=== PATIENT | male | born 1950 | race Caucasian/White ===

== ENCOUNTER → 2017-08-06 | Outpatient (CLI) | payer MEDICARE, OTHER | LOC: COL.VAS 11:58 | DX: M66.0 Rupture of popliteal cyst (principal) ==

== ENCOUNTER → 2021-05-15 | Outpatient (CLI) | payer MEDICARE, OTHER | LOC: COL.RAD 08:53 | DX: Z13.6 Encounter for screening for cardiovascular disorders (principal) ==

== ENCOUNTER 2021-07-11 13:44 | Emergency (ER) | payer MEDICARE, OTHER ==
[~2021-07-11] VITALS: Ht 172.7 cm; Wt 100.0 kg
[2021-07-11 14:07] VITALS: TEMP 98
[2021-07-11 18:10] VITALS: BP 126/82; PULSE 60
== END 2021-07-11 18:10 | disposition home or self-care (01) ==
LOC: COL.ER 13:44
DX: S63.283A Dislocation of proximal interphalangeal joint of left middle finger, initial encounter (principal); S00.01XA Abrasion of scalp, initial encounter; E11.9 Type 2 diabetes mellitus without complications; Z87.891 Personal history of nicotine dependence; Z23 Encounter for immunization; W11.XXXA Fall on and from ladder, initial encounter

== ENCOUNTER 2022-02-11 23:14 | Observation (INO) | payer MEDICARE, OTHER ==
[~2022-02-11] VITALS: Ht 172.7 cm; Wt 96.5 kg
[2022-02-11 23:58] LABS: BASO % 0.4 % (0.0-2.0); EOS % 0.4 % (0.0-4.0); GRAN # 9.2 K/mm3 (1.4-6.5); GRAN % 84.6 % (42.2-75.2); HEMOGLOBIN 16.3 g/dl (13.5-18.0); LYMPH % 9.2 % (20.0-51.0); MEAN CELL VOLUME 93 fl (80.0-100.0); MEAN CORPUSCULAR HEMOGLOBIN 31 pg (27-31); MEAN CORPUSCULAR HGB CONC 33 g/dl (33.0-37.0); MONO # 0.5 K/mm3 (0.1-0.6); MONO % 4.8 % (1.7-9.3); PLATELET COUNT 239 K/mm3 (130-400); RED BLOOD COUNT 5.27 M/mm3 (4.20-5.60); REDCELL DISTRIBUTION WIDTH-CV 13.2 % (11.5-14.5)
[2022-02-12 00:01] LABS: ALANINE AMINOTRANSFERASE 84 U/L (0-55); ALBUMIN 3.9 gm/dL (3.4-4.8); ALKALINE PHOSPHATASE 100 U/L (40-150); ANION GAP 13 mmol/L (7-16); AST,SGOT 108 U/L (5-34); BILIRUBIN,TOTAL 0.7 mg/dL (0.2-1.2); BLOOD UREA NITROGEN 19 mg/dL (8-26); C-REACTIVE PROTEIN 0.32 mg/dL (0.00-0.50); CALCIUM 10.1 mg/dL (8.4-10.2); CARBON DIOXIDE 22 mmol/L (23-31); CHLORIDE 104 mmol/L (98-107); CREATININE, serum 1.04 mg/dL (0.72-1.25); GLUCOSE 146 mg/dL (70-99); POTASSIUM 4.1 mmol/L (3.5-4.5); SODIUM 139 mmol/L (136-145); TOTAL PROTEIN 7.2 gm/dL (6.2-8.1)
[2022-02-12 00:13] LABS: COLLECTION METHOD CLEAN CATCH
[2022-02-12 00:20] LABS: MUCOUS Present (NOT PRESENT); SQUAMOUS EPITHELIAL None Seen /hpf (0-10); URINE BACTERIA None Seen /hpf (NONE SEEN)
[2022-02-12 00:22] LABS: URINE COLOR Yellow (YELLOW)
[2022-02-12 00:22] LABS: LIPASE 2570 U/L (8-78); TROPONIN-I < 0.010 ng/mL (0.00-0.033)
[2022-02-12 00:23] LABS: PH 5.5 (5.0-8.5); URINE APPEARANCE Clear (CLEAR/HAZY); URINE BLOOD TRACE-INTACT (NEGATIVE); URINE GLUCOSE Negative (NEGATIVE); URINE KETONE Negative (NEGATIVE); URINE NITRATE Negative (NEGATIVE); URINE PROTEIN(semi-quant) Negative (NEGATIVE); URINE UROBILINOGEN 0.2 E.U/dL (0.2-1.0)
[2022-02-12] MEDS ORDERED: CARDIZEM CD360 MG PO (02:02)
[2022-02-12] MEDS ORDERED: ZYRTEC 10MG10 MG PO (02:03)
[2022-02-12] MEDS ORDERED: K-DUR20 MEQ PO (02:04)
[2022-02-12] MEDS ORDERED: HYDRODIURIL50 MG PO (02:05)
[2022-02-12] MEDS ORDERED: FLOMAX 0.40.4 MG/CAP PO (02:05)
[2022-02-12] MEDS ORDERED: CYMBALTA 60MG60 MG PO (02:07)
[2022-02-12 04:52] VITALS: BP 128/82; PULSE 54; TEMP 97.8
--- NOTE | 2022-02-12 06:15 | NUR ---
PT ARRIVED TO THE MEDICAL FLOOR AROUND 0400HRS TO ROOM 357. PT A&O x 4; VSS; O2 RA. PT COMPLAINED OF UPPER ABD/LOWER CHEST PAIN. PT GIVEN MORPHINE FOR PAIN. PT FELT MORPHINE WAS EFFECTIVE. PT DENIED PALPITATIONS, SOB, N,V,D OR DIZZINESS AT THIS TIME. ADMISSIONS ASSESSMENT AND MED REC COMPLETE. PT ORIENTED TO ROOM AND HOSPITAL POLICY. POC DISCUSSED WITH PT. PT VERBALIZED UNDERSTANDING. ALL QUESTIONS AND CONCERNS ADDRESSED. PT EXPRESSED NO ADDITIONAL NEEDS AT THIS TIME. CALL LIGHT WITHIN REACH.
[2022-02-12 07:50] VITALS: BP 145/77; PULSE 58; TEMP 98.2
--- NOTE | 2022-02-12 08:58 | NUR ---
PT RESTING IN BED, ASSESSMENTS COMPLETE, COVID SWAB OBBTAINED. PT DENIES NEEDS. DR. NORRIS IN TO SEE THIS PT TODAY
[2022-02-12 11:55] VITALS: BP 110/68; PULSE 92; TEMP 98
--- NOTE | 2022-02-12 12:20 | NUR ---
Ginger: quaker Situation: Exhibit Display Representative went by room on rounds Background: Pt was resting and content Assessment: Pt has no needs right now Recommendation: data communications software consultant will follow up as needed
--- NOTE | 2022-02-12 14:30 | NUR ---
tension worker met with patient to compelte intake and discuss discharge plan. Patient reports that he lives at home with his Mackenzie ([phone]) in [place]. Patient reports that he is independent with his ADL's and does not utilize any DME to assist with mobility. Patient reports that he does not use home oxygen but does utilize a CPAP at night that is managed through [facility]. PCP is Dr.Chance Shen and he gets his prescriptions from the [place] mailed to him. For short term medications, he utilizes [facility]. 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 Discharge plan: Home
[2022-02-12 17:17] VITALS: BP 97/62; PULSE 51; TEMP 98.2
[2022-02-12 19:48] VITALS: BP 100/62; BP 97/67; PULSE 50; TEMP 97.4
--- NOTE | 2022-02-12 21:00 | NUR ---
PT IN BED. DENIES ABD PAIN, HAS GOOD BOWEL SOUNDS. IVF TO LT AC, INFUSING WITHOUT PROBLEM. IS ALERT AND ORIENTED X4. TAKING CLEAR LIQUIDS WITHOUT PROBLEM.
[2022-02-12 23:18] VITALS: BP 124/72; PULSE 53; TEMP 98.5
--- NOTE | 2022-02-13 02:30 | NUR ---
PT REPORTS VOIDING Q30 MIN, APPROX 200CC EACH TIME. REQUESTED BATH WIPES AND CLEAN GOWN, PROVIDED AT THIS TIME.
[2022-02-13 03:49] VITALS: BP 108/61; PULSE 62; TEMP 98.6
--- NOTE | 2022-02-13 06:00 | NUR ---
PT HAS BEEN NPO SINCE MIDNIGHT FOR POSSIBLE SURGERY TODAY.
[2022-02-13 06:05] LABS: BASO % 0.5 % (0.0-2.0); EOS # 0.3 K/mm3 (0.0-0.7); EOS % 3.9 % (0.0-4.0); GRAN # 5.6 K/mm3 (1.4-6.5); GRAN % 69.9 % (42.2-75.2); HEMOGLOBIN 15.8 g/dl (13.5-18.0); LYMPH # 1.4 K/mm3 (1.2-3.4); LYMPH % 17.9 % (20.0-51.0); MEAN CELL VOLUME 95 fl (80.0-100.0); MEAN CORPUSCULAR HEMOGLOBIN 31 pg (27-31); MEAN CORPUSCULAR HGB CONC 33 g/dl (33.0-37.0); MEAN PLATELET VOLUME 10.3 fl (7.4-10.4); MONO # 0.6 K/mm3 (0.1-0.6); PLATELET COUNT 220 K/mm3 (130-400); RED BLOOD COUNT 5.08 M/mm3 (4.20-5.60); REDCELL DISTRIBUTION WIDTH-CV 13.4 % (11.5-14.5)
[2022-02-13 06:25] LABS: ALBUMIN 3.7 gm/dL (3.4-4.8); BILIRUBIN,TOTAL 0.9 mg/dL (0.2-1.2); CALCIUM 9.5 mg/dL (8.4-10.2); CREATININE, serum 0.88 mg/dL (0.72-1.25); TOTAL PROTEIN 6.8 gm/dL (6.2-8.1)
[2022-02-13 07:44] VITALS: BP 131/82; PULSE 60; TEMP 99
--- NOTE | 2022-02-13 09:55 | NUR ---
Initial visit; Patient thanked [facility] for looking in on him and offering prayer and God's blessings for his upcoming surgical procedure. Patient appeared to feel better following his prayer.
[2022-02-13 11:14] VITALS: BP 115/75; PULSE 59; TEMP 98.7
--- NOTE | 2022-02-13 12:49 | NUR ---
factory worker met with patient to complete intake and discuss discharge plan. Patient currently lives at home with his Mackenzie ([phone]) in [place]. Mackenzie is present at bedside. Patient is independent with his ADL's and does not utilize any DME to assist with mobility. Patient has no home oxygen needs. PCP is Dr. Fred Shen and they utilizes [facility] for prescriptions. Patient states he does not have a [facility] established at this time, and is not interested in creating one at this time. Patient is planning on returning home once medically ready. Discharge plan: Home
[2022-02-13 16:28] VITALS: BP 111/67; PULSE 99; TEMP 97.9
[2022-02-13 19:34] VITALS: BP 109/74; PULSE 54; TEMP 98.1
--- NOTE | 2022-02-13 22:01 | NUR ---
Patient assessed around 194. Alert and oriented, and able to make needs known. Denies having pain and discomfort, as well as nausea. Patient has IV fluids running to left AC per orders. LS CTA. HRR. BSAx4. Did have small BM. No edema. Patient aware that he is NPO after midnight for procedure tomorrow. Voices no questions, needs, or concerns at this time. In bed with call light within reach.
[2022-02-13 23:44] VITALS: BP 124/77; PULSE 63; TEMP 97.8
[2022-02-14] VITALS (8 sets, daily range): BP systolic 101–132; BP diastolic 62–85; PULSE 51–67; TEMP 97.4–98.4
--- NOTE | 2022-02-14 06:24 | NUR ---
Patient continues on IV fluids and ABX per orders. Has been NPO since midnight. Voices no questions, needs, or concerns at this time. In bed with call light within reach.
--- NOTE | 2022-02-14 12:18 | NUR ---
PATIENT OFF OF FLOOR FOR SURGERY
--- NOTE | 2022-02-14 13:26 | NUR ---
PATIENT ALERT AND ORIENTED X4. VSS. PATIENT HERE FOR CHOLECYSTITIS. PATIENT SCHEDULED FOR ROBOTIC [place]. PATIENT DENIES PAIN AT THIS TIME. IV TO LEFT AC WITH NS RUNNING AT 125ML/HOUR. PATIENT ON ROOM AIR. ASSESSMENT PERFORMED. AM MEDS ADMINISTERED. PATIENT RESTING IN BED WITH CALL LIGHT NEAR.
[2022-02-14] MEDS ORDERED: NORCO 325 MG-51 TAB PO (14:08)
--- NOTE | 2022-02-14 17:18 | NUR ---
DISCHARGE INSTRUCTIONS PROVIDED. PATIENT EDUCATION GIVEN. FOLLOW UP APPOINTMENTS DISCUSSED. PATIENT DENIES ANY QUESTIONS OR CONCERNS. IV DC'D. PATEINT ESCORTED OUT VIA WHEELCHAIR.
== END 2022-02-14 17:15 | disposition home or self-care (01) ==
LOC: COL.ER 23:14 → MEDICAL 02-12 01:23 → SURG 02-12 01:23 → MEDICAL 02-12 01:23 → SURG 02-12 13:35
PROVIDERS: Nurse Practitioner Primary Care; ADMIT Surgery
DX: K81.1 Chronic cholecystitis (principal); K85.90 Acute pancreatitis without necrosis or infection, unspecified; Z87.891 Personal history of nicotine dependence; G47.33 Obstructive sleep apnea (adult) (pediatric); Z79.899 Other long term (current) drug therapy; Z20.822 Contact with and (suspected) exposure to COVID-19
CPT/HCPCS: G0378; J0690; J1100; J1885; J1956; J2270; J2405; J2543; J2704; J3010; J7030; Q9967

== ENCOUNTER → 2022-03-05 | Outpatient (CLI) | payer MEDICARE, OTHER ==
[~2022-03-05] MED LIST: CARDIZEM CD360 MG PO; CYMBALTA 60MG60 MG PO; FLOMAX 0.40.4 MG/CAP PO; HYDRODIURIL50 MG PO; K-DUR20 MEQ PO; NORCO 325 MG-51 TAB PO; ZYRTEC 10MG10 MG PO
[2022-03-05 10:30] LABS: BASO # 0.1 K/mm3 (0.0-0.2); BASO % 0.6 % (0.0-2.0); EOS # 0.3 K/mm3 (0.0-0.7); EOS % 3.8 % (0.0-4.0); GRAN # 5.1 K/mm3 (1.4-6.5); GRAN % 64.5 % (42.2-75.2); HEMATOCRIT 46.8 % (42.0-52.0); HEMOGLOBIN 16.1 g/dl (13.5-18.0); LYMPH # 1.7 K/mm3 (1.2-3.4); MEAN CELL VOLUME 89 fl (80.0-100.0); MEAN CORPUSCULAR HEMOGLOBIN 31 pg (27-31); MEAN CORPUSCULAR HGB CONC 34 g/dl (33.0-37.0); MEAN PLATELET VOLUME 9.7 fl (7.4-10.4); MONO # 0.8 K/mm3 (0.1-0.6); MONO % 9.5 % (1.7-9.3); PLATELET COUNT 314 K/mm3 (130-400); RED BLOOD COUNT 5.24 M/mm3 (4.20-5.60); REDCELL DISTRIBUTION WIDTH-CV 13.2 % (11.5-14.5)
[2022-03-05 10:48] LABS: BILIRUBIN,TOTAL 0.8 mg/dL (0.2-1.2); CALCIUM 10.4 mg/dL (8.4-10.2); CREATININE, serum 1.27 mg/dL (0.72-1.25); POTASSIUM 3.2 mmol/L (3.5-4.5); TOTAL PROTEIN 7.3 gm/dL (6.2-8.1)
== END ==
LOC: COL.RAD 10:05
PROVIDERS: Family Medicine
DX: R10.13 Epigastric pain (principal); R11.2 Nausea with vomiting, unspecified